=== PATIENT | female | born 1990 | race Caucasian/White ===

== ENCOUNTER → 2019-03-02 15:39 | Outpatient (CLI) | payer OTHER, SELFPAY ==
[2019-03-02 16:46] LABS: Basophils # 0.1 K/mm3 (0-0.2); Basophils % 0.4 % (0.1-2.0); Eosinophils # 0.5 K/mm3 (0.0-0.4); Eosinophils % 4.8 % (0.1-12.0); Hematocrit 43.4 % (37.0-47.0); Hemoglobin 13.4 g/dL (12.2-16.2); Lymphocytes # 2.9 K/mm3 (0.7-4.5); Lymphocytes % 27.1 % (10-50); Mean Corpuscular HGB Conc 30.8 g/dL (31.8-35.4); Mean Corpuscular Hemoglobin 28.2 pg (27.0-31.2); Mean Corpuscular Volume 91.6 fl (81-99); Mean Platelet Volume 7.3 fl (7.4-10.4); Monocytes # 6.1 K/mm3 (0.1-1.0); Neutrophils # 1.1 K/mm3 (1.8-7.8); Platelet Count 370 K/mm3 (142-424); Red Blood Count 4.74 M/mm3 (4.20-5.40); White Blood Count 10.7 K/mm3 (4.8-10.8)
[2019-03-02 18:28] LABS: HCG Qualitative, Serum Negative (Negative)
[2019-03-02 19:04] LABS: Neutrophils % 10.3 % (37.0-80.0)
[2019-03-02 19:05] LABS: MANUAL DIFFERENTIAL MANUAL DIFFERENTIAL (MANUAL DIFF); Monocytes % 57.5 % (1.7-9.3)
[2019-03-02 19:17] LABS: Eosinophils % 6 % (0-3); Lymphocytes % 20 % (10-50); Monocytes % 2 % (2-9); Neutrophils % 70 % (42-76); Platelet Estimate Normal; Promyelocytes % 1 %; RBC Morphology Normal; Total Cells Counted 100
[2019-03-05 09:38] LABS: Peripheral Smear Review Scanned Result
== END ==
PROVIDERS: Visit Provider Obstetrics & Gynecology
DX: Z30.09 Encounter for other general counseling and advice on contraception (principal)
CPT/HCPCS: 36415; 84703; 85007; 85025